=== PATIENT | female | born 1995 | race Two or more races ===

== ENCOUNTER 2024-06-05 09:54 | Observation (INO) | payer MEDICAID, SELFPAY ==
[2024-06-05] VITALS (13 sets, daily range): BP systolic 106–117; BP diastolic 58–69; PULSE 78–102; TEMP 36.9; BMI 31.7
--- NOTE | 2024-06-05 10:42 | XR_ITS ---
Examination: Complete OB ultrasound greater than 14 weeks Date and time of exam: June 05, 2024 10:51 AM INDICATIONS: labor pelvic contractions beginning one week ago Findings: Viable intrauterine single fetus with single amniotic sac The presentation cephalic Cardiac motion 167 BPM Placenta fundal grade 3 venous lakes Umbilical cord insertion 3 vessel seen Amniotic fluid index 13.0 cm Mild to moderate right hydronephrosis Ovaries obscured by the fetus. Composite estimated gestational age based on BPD, head circumference, abdominal circumference, femur length is 36 weeks 0 days Estimated weight 2718 g. Survey of intracranial anatomy, spinal anatomy, abdominal anatomy, four-chamber heart performed with no abnormalities identified. Impression: Viable intrauterine gestation cephalic presentation.
[2024-06-05] MEDS: RINGERS LACTATED 1000 ML 1,000 ML 100 ML IV ×2 (11:08→13:37)
[2024-06-05] MEDS: Ampicillin Inj 2,000 MG in SODIUM CHLORIDE 0.9% (P) 100 ML 200 MG IV (11:10)
[2024-06-05] MEDS: BETAMET ACET/BETAMET NA PH (Celestone) 6 MG/ML VIAL 12 MG IM (11:10)
[2024-06-05 13:09] LABS: Basophils % (Auto) 1 % (0-2.5); Eosinophils # (Auto) 0.1 Thou/mm3 (0.0-0.5); Eosinophils % (Auto) 1 % (0-10); Hematocrit 35.6 % (36.0-46.0); Hemoglobin 12.4 g/dL (12.0-16.0); Immature Granulocytes % (Auto) 0 % (0-0); Immature Granulocytes Auto 0.03 Thou/mm3 (0.00-0.00); Lymphocytes # (Auto) 1.7 Thou/mm3 (1.0-4.8); Lymphocytes % (Auto) 23 % (10-50); Mean Corpuscular HGB Conc 34.8 g/dl (31.0-37.0); Mean Corpuscular Hemoglobin 30.2 pg (25.0-35.0); Mean Corpuscular Volume 87 fL (80-100); Monocytes # (Auto) 0.4 Thou/mm3 (0.0-0.8); Monocytes % (Auto) 5 % (0-12); Neutrophils # (Auto) 5.2 Thou/mm3 (1.8-7.7); Neutrophils % (Auto) 70 % (37-80); Nucleated Red Blood Cell % 0 /100 WBC (0); Platelet Count 332 Thou/mm3 (140-440); RDW Standard Deviation 42.1 fL (36.4-46.3); Red Blood Count 4.11 Miln/mm3 (4.00-5.20); White Blood Count 7.5 Thou/mm3 (3.6-11.0)
[2024-06-05 13:44] LABS: Syphilis Nonreactive (Nonreactive)
--- NOTE | 2024-06-05 14:05 | PC.NURSE ---
06/05/2024 @ [address] SCHAEFFER NOTIFIED PATIENT BROUGHT HER HOME MEDICATIONS METRONIDAZOLE 500 MG PO BID THAT SHE STARTED 06/01 AND URSODIOL 300 MG BID PO. PER Alok BOYCE FOR PATIENT TO CONTINUE AND TAKE HOME MEDICATION METRONIDAZOLE HERE AT [facility], M.D. ALSO ORDERED THAT AFTER SECOND DOSE OF AMPICILLIN 1G D/C MEDICATION AND TO TAKE BLOOD SUGARS 4X A DAY FASTING AND 1 HOUR AFTER EACH MEAL. NOTIFY PROVIDER IF BS GREATER THAN 150.
--- NOTE | 2024-06-05 14:06 | PD.LDHP ---
Documentation for date of: 06/05/24 OB Labor/Induct. HPI History of Present Illness : 4 Term pregnancies: 2 pregnancies: 0 Living children: 2 History of Abortions: Spontaneous and Elective: 1 History of sections: No History of : No History of present illness: 29-year-old 5 para 3-0-1-3 at 34 weeks is admitted for observation. Patient is seen by me for the first time today care with a different provider. Patient was sent over from different providers office for contractions previous vaginal delivery x 3 at term. This is complicated by GDM A1 and cholestasis in third trimester. Patient reports no leaking or bleeding History of Present Dating criteria: LMP confirmed by 2nd trimester US Adequate Care: Yes Past Medical History Surgical History SURGICAL: Negative Section Meds Home Medications and Allergies Home Medications ?Medication ?Instructions ?Recorded ?Confirmed ?Type vits no.124-ferrous fum 1 tab PO QDAY 07/22/18 06/05/24 History 27 mg iron-folic acid 800 mcg tablet ( Vitamin) [id number] 1 mg 2 tab PO DAILY 06/05/24 06/05/24 History tablet ursodiol 300 mg capsule 300 mg PO BID 06/05/24 06/05/24 History Allergies Allergy/AdvReac Type Severity Reaction Status Date / Time NKA* Allergy Uncoded 06/05/24 10:01 OB Exam Physical Exam Vital signs: Pulse BP 78 114/67 06/05/24 12:16 06/05/24 12:16 Constitutional Constitutional: no acute distress Routine HEENT Exam Head: Present normocephalic and atraumatic Eye: Present EOMI and PERRL ENT: Present mucous membranes moist Routine Neck Exam Neck: Present supple and trachea midline Routine Cardiovascular Exam Cardiovascular: Present RRR Routine Abdominal Exam Abdominal: Present soft and normoactive bowel sounds Detailed Labor and Delivery Exam Comments: Cervix is 4 cm 50% effaced bulging bag Contractions every 8 to 10 minutes apart Routine Extremities Exam Extremities: Present full ROM Routine Skin Exam Skin: Present intact, dry and warm Routine Neurological Exam Neurological: Present alert, oriented X3 and CN II-XII intact Routine Psychiatric Exam Psychiatric: Present normal affect and normal thought process OB Results Labs 06/05/24 11:15 Labs: Short CBC 06/05/24 Range/Units 11:15 WBC 7.5 (3.6-11.0) Thou/mm3 Hgb 12.4 (12.0-16.0) g/dL Hct 35.6 L (36.0-46.0) % Plt Count 332 (140-440) Thou/mm3 Impressions Impression: 29-year-old 5 para 3-0-1-3 at 34 weeks admitted for labor GBS unknown started on prophylaxis Betamethasone x 1 given GDM A1 blood sugar trend to be done fasting and 1 hour after every meal Ultrasound for presentation ordered OB Assessment & Plan Additional Plan Additional Plan Comment: Admit for observation GBS collected
[2024-06-05] MEDS: ursodioL 300 MG CAPSULE PO (15:07)
[2024-06-05] MEDS: Ampicillin Inj 1,000 MG in SODIUM CHLORIDE 0.9% (P) 50 ML 100 MG IV (15:24)
[2024-06-05] MEDS: INSULIN HUM REGULAR 1 UNIT/0.01 ML (PER UNIT) SC (19:03)
[2024-06-05] MEDS: METRONIDAZOLE 500 MG TABLET PO (21:30)
[2024-06-06] VITALS (15 sets, daily range): BP systolic 97–124; BP diastolic 54–72; PULSE 78–109; RESP 18; TEMP 36.5–36.9
[2024-06-06] MEDS: RINGERS LACTATED 1000 ML 1,000 ML 100 ML IV (01:02)
[2024-06-06] MEDS: METRONIDAZOLE 500 MG TABLET PO (08:36)
[2024-06-06] MEDS: ursodioL 300 MG CAPSULE PO (08:37)
[2024-06-06] MEDS: INSULIN HUM REGULAR 1 UNIT/0.01 ML (PER UNIT) SC (08:47)
--- NOTE | 2024-06-06 08:53 | PC.NURSE ---
PHONE CALL MADE TO DR. GALLOWAY. MADE AWARE OF RECENT BLOOD SUGAR OF 160, 1 UNIT OF INSULIN GIVEN PER INSULIN SLIDING SCALE PROTOCOL. NO NEW ORDERS AT THIS TIME.
[2024-06-06] MEDS: BETAMET ACET/BETAMET NA PH (Celestone) 6 MG/ML VIAL 12 MG IM (11:06)
== END 2024-06-06 11:45 | disposition home or self-care (01) ==
PROVIDERS: Admitting Provider Student in an Organized Health Care Education/Training Program; Visit Provider Student in an Organized Health Care Education/Training Program
DX: O26.643 Intrahepatic cholestasis of pregnancy, third trimester (principal); K83.1 Obstruction of bile duct; Z3A.34 34 weeks gestation of pregnancy; O24.419 Gestational diabetes mellitus in pregnancy, unspecified control
CPT/HCPCS: 36415; 59025; 59899; 76805; 85025; 86780; 86850; 86870; 86900; 86901; 87081; 96360; 96361; 96372; J0290; J0702; J1815; J7050; J7120; A9270

== ENCOUNTER 2024-07-04 15:17 | Inpatient (IN) | payer MEDICAID, SELFPAY ==
[2024-07-04] VITALS (133 sets, daily range): BP systolic 91–131; BP diastolic 52–77; PULSE 68–104; RESP 16; TEMP 36.4–36.9; O2SAT 97–100; BMI 32.5
[2024-07-04 16:11] LABS: Basophils % (Auto) 1 % (0-2.5); Eosinophils % (Auto) 1 % (0-10); Hematocrit 36.8 % (36.0-46.0); Immature Granulocytes % (Auto) 0 % (0-0); Immature Granulocytes Auto 0.02 Thou/mm3 (0.00-0.00); Lymphocytes # (Auto) 1.9 Thou/mm3 (1.0-4.8); Lymphocytes % (Auto) 28 % (10-50); Mean Corpuscular HGB Conc 35.3 g/dl (31.0-37.0); Mean Corpuscular Hemoglobin 30.3 pg (25.0-35.0); Mean Corpuscular Volume 86 fL (80-100); Monocytes # (Auto) 0.3 Thou/mm3 (0.0-0.8); Monocytes % (Auto) 4 % (0-12); Neutrophils # (Auto) 4.4 Thou/mm3 (1.8-7.7); Neutrophils % (Auto) 67 % (37-80); Nucleated Red Blood Cell % 0 /100 WBC (0); Platelet Count 326 Thou/mm3 (140-440); RDW Standard Deviation 43.4 fL (36.4-46.3); Red Blood Count 4.29 Miln/mm3 (4.00-5.20); White Blood Count 6.6 Thou/mm3 (3.6-11.0)
[2024-07-04] MEDS: OXYTOCIN in NS 30 units 30 UNIT/500 ML BAG IV (16:53)
[2024-07-04 16:54] LABS: Syphilis Nonreactive (Nonreactive)
[2024-07-04] MEDS: RINGERS LACTATED 1000 ML 1,000 ML 100 ML IV (16:58)
--- NOTE | 2024-07-04 17:01 | PD.LDHP ---
Documentation for date of: 07/04/24 OB Labor/Induct. HPI History of Present Illness History of present illness: Dictated in Nuance [id number] History of Present Adequate Care: Yes Labs Labs: Negative: HIV and Group Beta Strep Meds Home Medications and Allergies Home Medications ?Medication ?Instructions ?Recorded ?Confirmed ?Type vits no.124-ferrous fum 1 tab PO QDAY 07/22/18 07/04/24 History 27 mg iron-folic acid 800 mcg tablet ( Vitamin) [id number]-bhq-Lp-FA 1 mg 2 tab PO DAILY 06/05/24 07/04/24 History tablet ursodiol 300 mg capsule 300 mg PO BID 06/05/24 07/04/24 History Allergies Allergy/AdvReac Type Severity Reaction Status Date / Time No Known Allergies Allergy Unverified 07/04/24 16:37 OB Exam Physical Exam Vital signs: Temp Pulse Resp BP Pulse Ox 97.6 F 87 16 129/77 99 07/04/24 15:34 07/04/24 15:34 07/04/24 15:34 07/04/24 15:34 07/04/24 16:57 OB Results Labs 07/04/24 15:45 Labs: Short CBC 07/04/24 Range/Units 15:45 WBC 6.6 (3.6-11.0) Thou/mm3 Hgb 13.0 (12.0-16.0) g/dL Hct 36.8 (36.0-46.0) % Plt Count 326 (140-440) Thou/mm3
[2024-07-05] VITALS (146 sets, daily range): BP systolic 96–138; BP diastolic 44–93; PULSE 67–120; RESP 14–21; TEMP 36.3–37.6; O2SAT 72–100
--- NOTE | 2024-07-05 05:01 | PD.LDPN ---
Documentation for date of: 07/05/24 OB Labor Progress Note Pain Control Comments: Epidural Pelvic Exam Dilation (cm): 9 Effacement (%): 80 station: +1 Amniotic membrane status: Ruptured Comments: Clear fluid Contractions Contraction frequency: q 3 min Status status: Category l Assessment and Plan Comments: Anticipate
--- NOTE | 2024-07-05 06:26 | PD.LDDS ---
DS: Providers Provider Date of admission: 07/04/24 15:17 Primary care physician: Physician No Primary/Family Admitting Provider: Naresh Monsivais MD Attending Provider on Admission: Naresh Monsivais MD Attending Provider on DC: Naresh Monsivais MD Discharging Provider: Naresh Monsivais MD DS: Diagnosis Problem List Completed Was Problem List Reviewed/Reconciled?: Yes Summary/Hosp Course Brief History: Dictated in Nuance [id number] Time Spent with Patient Time attestation: Total time spent providing and/or coordinating discharge services: Exam Vital Signs Temp Pulse Resp BP Pulse Ox 98.2 F 97 16 120/56 L 98 07/05/24 04:12 07/05/24 06:23 07/04/24 15:34 07/05/24 06:23 07/05/24 06:22 Discharge Plan Plan Patient Disposition: HOME (Self Care) Patient condition on transfer: Stable Prescriptions/Referrals Prescriptions/Med Rec: New ibuprofen 600 mg tablet 600 mg PO Q6H PRN (Reason: pain) Qty: 30 0RF ferrous sulfate 325 mg (65 mg iron) tablet 325 mg PO Q OTHER DAY Qty: 30 1RF Continued Vitamin 27 mg iron- 800 mcg Tablet 1 tab PO QDAY Discontinued ursodiol 300 mg Capsule 300 mg PO BID 1 mg Tablet 2 tab PO DAILY Referrals: No Primary/Family,Physician [Primary Care Provider] - Patient/Caregiver Discharge Instructions Discharge Activity: activity as tolerated Other Discharge Activity Instructions:: Follow up office 6 weeks. Education Materials: Surgery Anesthesia After, After a Vaginal , : Caring for Yourself, D and C Dc Print Language: Guatemalan Stand Alone Forms: Vicenta Award Info., Patient Portal Info Letter, DC from Surgery Discharge Order Discharge Orders: Discharge (Routine); Ordered 07/07/24 Ordered By: Naresh Monsivais Planned Discharge Date 07/07/24
--- NOTE | 2024-07-05 06:26 | PD.LDDELS ---
Data (Simmons) Data Hx Section: No : 5 Para: 3 Term: 3 : 0 : 1 Delivery Data (Simmons) Labor Data ROM Date: 07/05/24 ROM Time: 04:48 Rupture Type: AROM Amniotic Fluid: Clear Delivery Data EDC: 07/17/24 EDC calculated by:: LMP/early US confirmation Labor Onset Stage 1 Date: 07/04/24 Labor Onset Stage 1 Time: 16:04 Labor Onset Stage 2 Date: 07/05/24 Labor Onset Stage 2 Time: 05:48 Delivery Date: 07/05/24 Delivery Time: 06:03 Gestational age (weeks): 38 Gestational age (days): 1 Placenta Delivery Date: 07/05/24 Placenta Delivery Time: 06:11 Delivered by: Naresh Monsivais Delivery nurse: Milla Yap Other staff at delivery: Nurse Other staff at delivery: Susie Ott Delivery Method Delivery: Vaginal Delivery Type: Spontaneous Presentation: Vertex Position: OA Anesthesia Type Primary Anesthesia: Epidural Placenta Placenta Delivery: Spontaneous Placenta Cultures Obtained: No Placenta Sent for Examination: No Cord Sample: Cord Blood Obtained Episiotomy Episiotomy: None Lacerations #1: Perineal: 2nd degree Perineal repair Sutures used for repair: 3.0 Chromic EBL Estimated blood loss (ml): 200 Umbilical Cord Placenta/Cord Complication: True Knot (loose nonobstructive) Umbilical Vessels: 3 Nuchal Cord: None Body Cord: None Additional Procedures None Complications Complications: None [place] Data ([facility]mons) [place] Data Infant Gender: Male Weight Grams: 4120 1 Minute Total: 9 5 Minute Total: 9
[2024-07-05] MEDS: HYDROcodone/APAP 5/325 TABLET 1 TAB PO (10:06)
--- NOTE | 2024-07-05 10:20 | ESHP_ITS ---
RE: LAINA CARVAJAL : 1995 DATE OF ADMISSION: 07/04/2024 HISTORY OF PRESENT ILLNESS: This is a 29-year-old 5, para 3-0-1-3 with due date of 07/17/2024 with an intrauterine at 38 weeks and 1 day who presents for induction of labor for cholestasis of . The patient's third trimester was complicated by itching. An evaluation workup revealed elevated bile acid levels consistent with cholestasis of . She also had elevated liver function tests. When she was placed on ursodiol at 300 mg p.o. b.i.d., she experienced some improvement, but then her bile acids and LFTs continued to rise, so she was placed on 300 mg x3 a day and this caused her bile acid levels to decline to the most recent level of 3.9 and her liver function tests have normalized. The patient reports normal movement. She denies any leaking or bleeding. She reports occasional contractions. ALLERGIES: NO KNOWN DRUG ALLERGIES. PAST MEDICAL HISTORY: Cholestasis of , RH negative, gestational diabetes mellitus class A1 well controlled, endometriosis, asthma, post depression. MEDICATIONS: 1. multivitamin 1 p.o. daily. 2. Ursodiol 300 mg 1 p.o. t.i.d. SOCIAL HISTORY: She is . She denies any alcohol, drug use, or smoking. FAMILY HISTORY: Diabetes, hypertension. Prior child with congenital pyloric stenosis. OBSTETRIC HISTORY: 2010: 40-week, normal vaginal delivery 7 pound 14-ounce male. No complications. 2014: 10 weeks spontaneous AB with D and C complicated by depression. 03/2016: 40-week normal vaginal delivery, 8 pound 15-ounce male, no complications. 2018: 40-week normal vaginal delivery 8 pound 5-ounce male, no complications. PAST SURGICAL HISTORY: Denies. REVIEW OF SYSTEMS: She denies any chest pain, palpitations, cough, fever, shortness of breath, or lower extremity pain. PHYSICAL EXAMINATION: VITAL SIGNS: Blood pressure is 136/80, heart rate 88, respirations 18, temperature 98.2. HEENT: Oropharynx and sclerae are clear. LUNGS: Clear to auscultation bilaterally. HEART: Regular rate and rhythm. ABDOMEN: consistent with estimated weight of 7.5 pounds. PELVIC: See RN notes. EXTREMITIES: Nontender. SKIN: No gross or lesions. NEUROLOGIC: No focal deficit. ASSESSMENT AND PLAN: Intrauterine at 38 weeks and 1 day. Cholestasis of . Gestational diabetes mellitus, Class A1, well controlled. PLAN: Induction of labor. Anticipate spontaneous vaginal delivery. Informed consent was obtained. The patient was made aware of the risk of operative vaginal delivery, delivery, and agrees with these modes of delivery if indicated. DT: 16:54:28 TT: 17:46:00 Ref: [id number] - TID: [id number]
--- NOTE | 2024-07-05 10:20 | PC.NURSE ---
RN called to bedside by pt, pt states feeling a a lot of fluid coming out and pressure with urge to have a bowel movement. RN assessed bleeding, and checked fundus. Heaving flow noted with clots and fundus deviated to the right upper quadrant. Pt instructed to remain in bed. Charge nurse Dimitri Jett into room with Rojas hBatia RN at 1025, Dimitri Jett charger operator helper performed fundal massage, large amounts of blood noted, manual extraction of clots performed and continued heavy bleeding and clots noted, uterus now midline 1 finger above umbilicus, Dr. Monsivais called to bedside at 1030. IM pitocin given at 1030, bolus of NS/pitocin started at 1033, rectal cytotec given by Rojas Bhatia RN at [address] Monsivais at bedside at 1035, MD assessed pt and bleeding, consents signed for dilation and curettage with placement of Bakrin balloon under general anesthesia. V/S stable methergine IM given. PT out of room 467 to main OR at 1055, report given to Rick KAY.
[2024-07-05] MEDS: OXYTOCIN INJ 10 UNIT/ML VIAL IM (10:30)
[2024-07-05] MEDS: OXYTOCIN in NS 20 units 20 UNIT/1,000 ML BAG 125 UNIT IV ×2 (10:33→13:28)
[2024-07-05] MEDS: MISOPROSTOL 200 mCg TABLET 800 MCG PR (10:34)
[2024-07-05] MEDS: METHYLERGONOVINE INJ 0.2 MG/ML VIAL IM (10:35)
--- NOTE | 2024-07-05 10:45 | ESPR_ITS ---
Subjective Subjective Interval history: Called to evaluate patient for heavy bleeding arrived within 5 minutes Exam Vital Signs Temp Pulse Resp BP Pulse Ox 98.1 F 109 H 16 121/44 L 97 07/05/24 06:30 07/05/24 10:35 07/04/24 15:34 07/05/24 10:35 07/05/24 06:27 Constitutional Comments: Patient alert awake and oriented Routine Abdominal Exam Comments: Uterine fundus is atonic. Approximately 800 cc of blood loss is noted at the perineum and expressed from the lower uterine segment by battery charger tester Anaya Uterus is more firm after administrating Methergine and Cytotec and Pitocin IM but still having persistent bleeding Objective Labs 07/04/24 15:45 Labs: Laboratory Results - last 24 hr 07/04/24 15:45 WBC 6.6 RBC 4.29 Hgb 13.0 Hct 36.8 MCV 86 MCH 30.3 MCHC 35.3 RDW Std Deviation 43.4 Plt Count 326 Neut % (Auto) 67 Lymph % (Auto) 28 [place] % (Auto) 4 Eos % (Auto) 1 Baso % (Auto) 1 Neut # (Auto) 4.4 Lymph # (Auto) 1.9 [place] # (Auto) 0.3 Eos # (Auto) 0.0 Baso # (Auto) 0.0 Immature Gran # (Auto) 0.02 H Absolute Nucleated RBC 0.00 Immature Gran % 0 Nucleated RBC % 0 Syphilis Serology Nonreactive Blood Type A Negative Antibody Screen NEGATIVE Blood Bank Wristband ID Yes Impressions Impression: hemorrhage due to uterine atony Status post spontaneous vaginal delivery Assessment & Plan Plan Comment Plan Comment: 2 large-bore IVs with normal saline running wide open in the first and 20 units of Pitocin in the second liter at 125 cc an hour Methergine 0.2 IM x 1 Cytotec 800 mcg per rectum x 1 Pitocin 10 units IM already given before I arrived Placement of Huynh catheter Type and cross for 2 units of packed red blood cells Transfer to the OR stat for Exam under anesthesia, uterine curettage, placement of Bakri balloon. Informed consent was obtained. The patient was made aware of the risk complications alternatives and benefits of the proposed procedure and she agrees Time Spent With Patient Time: Total time spent is greater than 50% in coordination of care (as documented) at patient's floor/unit and/or counseling patient:
[2024-07-05 10:57] LABS: Basophils % (Auto) 0 % (0-2.5); Eosinophils % (Auto) 0 % (0-10); Hematocrit 34.2 % (36.0-46.0); Hemoglobin 11.6 g/dL (12.0-16.0); Immature Granulocytes % (Auto) 0 % (0-0); Immature Granulocytes Auto 0.03 Thou/mm3 (0.00-0.00); Lymphocytes # (Auto) 1.9 Thou/mm3 (1.0-4.8); Lymphocytes % (Auto) 17 % (10-50); Mean Corpuscular HGB Conc 33.9 g/dl (31.0-37.0); Mean Corpuscular Hemoglobin 30.1 pg (25.0-35.0); Mean Corpuscular Volume 89 fL (80-100); Monocytes # (Auto) 0.6 Thou/mm3 (0.0-0.8); Monocytes % (Auto) 5 % (0-12); Neutrophils # (Auto) 8.8 Thou/mm3 (1.8-7.7); Neutrophils % (Auto) 78 % (37-80); Nucleated Red Blood Cell % 0 /100 WBC (0); Platelet Count 295 Thou/mm3 (140-440); RDW Standard Deviation 45.3 fL (36.4-46.3); Red Blood Count 3.85 Miln/mm3 (4.00-5.20); White Blood Count 11.3 Thou/mm3 (3.6-11.0)
--- NOTE | 2024-07-05 11:00 | PC.NURSE ---
Pads and chucks total weight of blood and clots 1246g.
--- NOTE | 2024-07-05 11:35 | PC.NURSE ---
Dr. Monsivais at bedside RN translated to significant other and mother of pt the procedure and that pt is now stable and will return to room after recovery, all questions and concerns addressed by MD. Per RN to give pt 2 more units of FFP once pt is back in room 467 and post CBC will be drawn 4 hours after last unit, Dr. Monsivais will re-assess pt and poc after results from post CBC.
--- NOTE | 2024-07-05 11:38 | PD.GYNPROC ---
Operative Note - DESIGN CELL ENGINEER Procedure Date of procedure: 07/05/24 Procedure Performed: Exam under anesthesia Uterine curettage Placement of Bakri balloon in the uterine cavity Indication: hemorrhage Uterine atony not responding to uterotonics Pre-Op diagnosis: hemorrhage Uterine atony not responding to uterotonic's day 0 status post spontaneous vaginal delivery Post-Op diagnosis: Same Anesthesia type: General Procedure description: Exam under anesthesia Uterine curettage Placement of Bakri Balloon in the Uterine Cavity Fluids: crystalloid Urine output (mL): 800 Specimen: none Estimated blood loss (ml): 600 Findings: Uterus atonic 2 cm above the umbilicus No vaginal or cervical lacerations No retained products of conception Complications: none Narrative: After proper informed consent was obtained and the patient was made aware of the risks, complications, alternatives and benefits of the proposed procedure she was taken to the operating room where she underwent induction of general anesthesia. She was placed in the dorsolithotomy position. And prepped and draped in usual sterile fashion. A timeout was performed. A bivalve speculum was placed in vagina a ring forcep was placed on the anterior lip of the cervix the vaginal canal and cervix were examined and the above findings noted. Using a banjo curette the uterine cavity was curetted. With palpation of the fundus of the uterus the uterine cavity was curetted in all 4 quadrants and clots were obtained but no products of conception were obtained. A Bakri balloon was placed in the uterine and inflated to 500 cc with normal saline. Palpation of the fundus of the uterus with the balloon in place revealed the fundus was firm at 2 cm below the umbilicus. The patient was observed for several minutes for any bleeding around the balloon or excessive bleeding through the balloon port into the VITALIY drain and no significant bleeding was noted. The patient remained hemodynamically stable throughout the procedure. A Curlex roll was placed in the vaginal vault against the cervix. All instruments were removed from the vagina. The perineum was examined and the previous sutures were partially disrupted. So the perineal laceration was resutured with 2-0 chromic catgut suture. Patient was reversed from general anesthesia, patient was transferred to the recovery room in stable condition. I discussed with the patient's and mother the nature of her condition, the intraoperative findings, and the expectation for recovery, all questions answered. Winnie KAY translated. Surgical staff Tere Hughes DISTRIBUTION OPERATIONS MANAGER anesthesia Chhaya Brandon GOVERNMENT EMPLOYEE : ! Software Integration Developer Naresh Monsivais DO, Surgeon Operation Date: 07/05/24 10:00 <No data on this case meets the specified criteria> Diagnosis Discharge Diagnosis (1) hemorrhage: Status: Acute (2) Uterine atony, , current hospitalization: Status: Acute Problem List Completed Was Problem List Reviewed/Reconciled?: Yes
--- NOTE | 2024-07-05 11:48 | SUR.PHASEI ---
1148: Pt. wakes to name then drifts back to sleep, vitals stable, breathing unlabored, no signs of distress, peripad in place CDI, VITALIY drain 19F round in place, report received from Ana KAY and Jon KAY.
--- NOTE | 2024-07-05 12:25 | SUR.PHASEI ---
1225: Pt. AAOx4, vitals stable, breathing unlabored, no complaint of pain or nausea, peripad in place CDI, bakri balloon in place with 19 hungarian round VITALIY Drain in place, pt. tolerated sips of water well, gave report to Anaya KAY prior to transfer to room 467.
[2024-07-05 13:05] LABS: Basophils % (Auto) 0 % (0-2.5); Eosinophils % (Auto) 0 % (0-10); Hematocrit 33.8 % (36.0-46.0); Hemoglobin 11.8 g/dL (12.0-16.0); Immature Granulocytes % (Auto) 0 % (0-0); Immature Granulocytes Auto 0.04 Thou/mm3 (0.00-0.00); Lymphocytes # (Auto) 0.9 Thou/mm3 (1.0-4.8); Lymphocytes % (Auto) 7 % (10-50); Mean Corpuscular HGB Conc 34.9 g/dl (31.0-37.0); Mean Corpuscular Hemoglobin 30.3 pg (25.0-35.0); Mean Corpuscular Volume 87 fL (80-100); Monocytes # (Auto) 0.3 Thou/mm3 (0.0-0.8); Monocytes % (Auto) 2 % (0-12); Neutrophils % (Auto) 91 % (37-80); Nucleated Red Blood Cell % 0 /100 WBC (0); Platelet Count 270 Thou/mm3 (140-440); RDW Standard Deviation 42.9 fL (36.4-46.3); White Blood Count 14.3 Thou/mm3 (3.6-11.0)
[2024-07-05] MEDS: IBUPROFEN TAB 400 MG TABLET 800 MG PO ×2 (13:53→22:01)
--- NOTE | 2024-07-05 16:20 | PC.NURSE ---
Dr. Monsivais called order received to order 2 units of fresh frozen plasma, and order post CBC 4 hours after 2 unit of FFP is done.
[2024-07-05] MEDS: ACETAMINOPHEN 325 MG TABLET 650 MG PO (19:07)
--- NOTE | 2024-07-05 19:24 | PC.NURSE ---
0.5ml blood removed from VITALIY drain from Bakri balloon at end of shift
[2024-07-05] MEDS: ceFAZolin/D5W 2 GM IV 2 GM/100 ML BAG IV (19:39)
[2024-07-05] MEDS: METHYLERGONOVINE 0.2 MG TABLET PO (22:01)
[2024-07-06] VITALS (9 sets, daily range): BP systolic 103–124; BP diastolic 52–78; PULSE 76–99; RESP 14–20; TEMP 36.5–36.9; O2SAT 96–99
[2024-07-06] MEDS: ceFAZolin/D5W 2 GM IV 2 GM/100 ML BAG IV ×2 (03:42→11:49)
[2024-07-06 05:45] LABS: Basophils % (Auto) 0 % (0-2.5); Eosinophils % (Auto) 0 % (0-10); Hematocrit 27.7 % (36.0-46.0); Hemoglobin 9.7 g/dL (12.0-16.0); Immature Granulocytes % (Auto) 0 % (0-0); Immature Granulocytes Auto 0.06 Thou/mm3 (0.00-0.00); Lymphocytes # (Auto) 2.8 Thou/mm3 (1.0-4.8); Lymphocytes % (Auto) 21 % (10-50); Mean Corpuscular Hemoglobin 29.8 pg (25.0-35.0); Mean Corpuscular Volume 85 fL (80-100); Monocytes # (Auto) 0.7 Thou/mm3 (0.0-0.8); Monocytes % (Auto) 5 % (0-12); Neutrophils # (Auto) 9.9 Thou/mm3 (1.8-7.7); Neutrophils % (Auto) 73 % (37-80); Nucleated Red Blood Cell % 0 /100 WBC (0); Platelet Count 217 Thou/mm3 (140-440); RDW Standard Deviation 45.1 fL (36.4-46.3); Red Blood Count 3.25 Miln/mm3 (4.00-5.20); White Blood Count 13.5 Thou/mm3 (3.6-11.0)
[2024-07-06] MEDS: METHYLERGONOVINE 0.2 MG TABLET PO (06:04)
[2024-07-06] MEDS: IBUPROFEN TAB 400 MG TABLET 800 MG PO ×2 (10:01→19:27)
--- NOTE | 2024-07-06 13:40 | PC.NURSE ---
Dr Monsivais removed bakri and vaginal packing, patient tolerated well. VORB to stop antibiotic, DC de [place] in one hour if bleeding is WNL and continue care.
[2024-07-06 16:32] LABS: Basophils % (Auto) 0 % (0-2.5); Eosinophils # (Auto) 0.1 Thou/mm3 (0.0-0.5); Eosinophils % (Auto) 1 % (0-10); Hematocrit 26.3 % (36.0-46.0); Hemoglobin 9.2 g/dL (12.0-16.0); Immature Granulocytes % (Auto) 1 % (0-0); Immature Granulocytes Auto 0.06 Thou/mm3 (0.00-0.00); Lymphocytes # (Auto) 2.4 Thou/mm3 (1.0-4.8); Lymphocytes % (Auto) 21 % (10-50); Mean Corpuscular Hemoglobin 30.1 pg (25.0-35.0); Mean Corpuscular Volume 86 fL (80-100); Monocytes # (Auto) 0.6 Thou/mm3 (0.0-0.8); Monocytes % (Auto) 5 % (0-12); Neutrophils # (Auto) 8.4 Thou/mm3 (1.8-7.7); Neutrophils % (Auto) 73 % (37-80); Nucleated Red Blood Cell % 0 /100 WBC (0); Platelet Count 227 Thou/mm3 (140-440); RDW Standard Deviation 46.2 fL (36.4-46.3); Red Blood Count 3.06 Miln/mm3 (4.00-5.20); White Blood Count 11.5 Thou/mm3 (3.6-11.0)
--- NOTE | 2024-07-06 19:59 | ESPR_ITS ---
RE: LAINA CARVAJAL : 1995 DATE OF SERVICE: 07/06/2024 SUBJECTIVE: day #1 and postop day #1, the patient denies any problem or complaint. She is voiding. She is ambulating. She is tolerating a regular diet. She is passing flatus. She denies any excessive vaginal bleeding. She denies any dizziness or lightheadedness. She denies any chest pain, palpitations, shortness of breath or lower extremity pain. OBJECTIVE: Vital Signs: Blood pressure 124/73, heart rate 92, respirations 18, temperature 98.0, pulse oximetry is 99% on room air. Lungs: Clear to auscultation bilaterally. Heart: Regular rate and rhythm. Abdomen: Fundus is firm. Extremities: Nontender. LABORATORY DATA: Hemoglobin is 9.2. ASSESSMENT AND PLAN: day #1 status post normal vaginal delivery, complicated by uterine atony with hemorrhage, status post exam under anesthesia, uterine curettage and placement of Bakri balloon. The patient remains hemodynamically stable after removal of Bakri balloon. Monitor for excessive bleeding or any signs of infection. Possible discharge home tomorrow. DT: 18:47:44 TT: 19:57:00 Ref: [id number] - TID: [id number]
[2024-07-07 03:40] VITALS: BP 113/76; PULSE 70; RESP 17; TEMP 36.6; O2SAT 97
[2024-07-07 07:30] VITALS: BP 117/75; PULSE 83; RESP 17; TEMP 36.5; O2SAT 97
[2024-07-07] MEDS: DIPHTH,PERTUSS(ACELL),TET VAC 0.5 ML VIAL IMi (08:35)
--- NOTE | 2024-07-07 12:05 | ESPR_ITS ---
RE: LAINA CARVAJAL : 1995 DATE OF SERVICE: 07/07/2024 SUBJECTIVE: day #2, postop day #2, status post spontaneous vaginal delivery the patient denies any problems or complaint. The Bakri balloon was removed yesterday at 1:30. She has had no excessive vaginal bleeding, dizziness, or lightheadedness. She is voiding without difficulty. She is ambulating. She is passing flatus. OBJECTIVE: Vital Signs: Blood pressure 117/75, heart rate 83, respirations 17, temperature 97.7, pulse oximetry 97% on room air. Lungs: Clear to auscultation bilaterally. Heart: Regular rate and rhythm. Abdomen: Fundus is firm. Extremities: Nontender. LABORATORY DATA: Hemoglobin is stable at 9.2. ASSESSMENT: 1. Postop day #2, status post uterine curettage, exam under anesthesia and placement of Bakri balloon, status post removal of Bakri balloon, hemodynamically stable for discharge home. 2. day 2. Status post spontaneous vaginal delivery. PLAN: Discharge home with nonsteroidal anti-inflammatory p.r.n. pain and ferrous sulfate every other day. Discharge instructions given. DT: 10:09:48 TT: 12:04:00 Ref: [id number] - TID: [id number]
== END 2024-07-07 09:20 | disposition home or self-care (01) | DRG 542 ==
LOC: S4SX 07-05 06:25 → S4NX 07-05 09:27
PROVIDERS: Admitting Provider Specialist; Visit Provider Obstetrics & Gynecology
PROC: 10E0XZZ Delivery of Products of Conception, External Approach (ICD-10-PCS; CPT 58120; principal; 2024-07-05 09:45)
DX: O24.420 Gestational diabetes mellitus in childbirth, diet controlled (principal); O26.643 Intrahepatic cholestasis of pregnancy, third trimester; E78.79 Other disorders of bile acid and cholesterol metabolism; K76.89 Other specified diseases of liver; O70.1 Second degree perineal laceration during delivery; Z3A.38 38 weeks gestation of pregnancy; Z37.0 Single live birth; O72.1 Other immediate postpartum hemorrhage; Z23 Encounter for immunization
CPT/HCPCS: 36415; 59409; 85025; 85461; 86780; 86850; 86900; 86901; 86923; 86927; 90715; 94762; A4217; J0689; J0690; J1100; J2210; J2250; J2405; J2590; J2704; J2790; J2795; J3010; J3490; J7120; P9016; P9060; S0191; A9270